=== PATIENT | male | born 1955 | race Caucasian/White ===

== ENCOUNTER 2017-07-18 08:35 | Emergency (ER) | payer MEDICAID ==
[~2017-07-18] VITALS: Ht 170.2 cm; Wt 70.0 kg
[2017-07-18] MEDS ORDERED: BENA20TA3 PO (08:41)
[2017-07-18] MEDS ORDERED: ACETAMINOPHEN 650MG/20.3ML UDC PO ONE (09:15)
[2017-07-18 12:15] VITALS: BP 135/83
== END 2017-07-18 12:20 | disposition home or self-care (01) ==
LOC: ER 08:35
DX: R07.89 Other chest pain (principal); M25.512 Pain in left shoulder; I10 Essential (primary) hypertension; V43.52XA Car driver injured in collision with other type car in traffic accident, initial encounter; Y93.89 Activity, other specified; Y92.89 Other specified places as the place of occurrence of the external cause; Y99.8 Other external cause status
CPT/HCPCS: 71111; 73030; 99284; Z7610